=== PATIENT | male | born 1995 | race Caucasian/White ===

== ENCOUNTER 2022-10-15 13:32 | Outpatient (CLI) | payer OTHER, SELFPAY ==
--- NOTE | ~2022-10-15 | MR_ITS ---
EXAMINATION: MR brain/brain stem wo con DATE: 10/15/2022 14:34 INDICATION: Migraine headache. Vision change. TECHNIQUE: Magnetic resonance imaging (MRI) of the brain and brainstem was performed without intraven ous contrast. COMPARISON: None. FINDINGS: There is no intracranial hemorrhage, acute infarction, or abnormal intracranial mass lesion . The ventricles are normal in size. The paranasal sinuses are clear. The orbits are normal. The mast oid air cells are normal. IMPRESSION: 1. Normal brain. Reviewed, dictated and finalized at location A. IMPRESSION: 1. Normal brain.
== END 2022-10-15 13:33 | disposition home or self-care (01) ==
PROVIDERS: PCP Family Medicine; Visit Provider Nurse Practitioner Family
DX: G43.909 Migraine, unspecified, not intractable, without status migrainosus (principal); H53.8 Other visual disturbances
CPT/HCPCS: 70551